=== PATIENT | female | born 1990 | race Caucasian/White ===

== ENCOUNTER → 2022-01-05 | Outpatient (REF) | payer OTHER | LOC: M SFHCADAM 11:45 | PROVIDERS: ATTEND Physician Assistant | DX: Z13.21 Encounter for screening for nutritional disorder (principal) ==

== ENCOUNTER → 2022-01-20 | Outpatient (REF) | payer OTHER ==
[2022-01-20 17:39] LABS: HCG, SERUM QUALITATIVE NEGATIVE (NEGATIVE)
[2022-01-20 17:43] LABS: FREE T4 0.92 NG/DL (0.76-1.46)
== END ==
LOC: M SFHCADAM 14:57
PROVIDERS: ATTEND Physician Assistant
DX: N92.6 Irregular menstruation, unspecified (principal)

== ENCOUNTER → 2022-01-27 | Outpatient (CLI) | payer OTHER | LOC: M RAD 16:13 | PROVIDERS: ATTEND Physician Assistant | DX: N92.6 Irregular menstruation, unspecified (principal) ==

== ENCOUNTER → 2022-01-28 | Outpatient (REF) | payer OTHER | LOC: M SFHCDERM 17:38 | PROVIDERS: ATTEND Nurse Practitioner Family | DX: L91.8 Other hypertrophic disorders of the skin (principal) ==

== ENCOUNTER → 2022-11-23 | Outpatient (REF) | payer BC ==
[2022-11-23 15:28] LABS: BASO # 0.1 10^3/uL (0.0-0.2); BASO % 0.8 % (0.0-1.0); EOS # 0.3 10^3/uL (0.0-0.5); EOS % 3.3 % (0.0-3.0); HEMATOCRIT 33.5 % (36.0-47.0); HEMOGLOBIN 9.7 g/dl (12.0-15.5); LYMPH # 1.7 10^3/uL (1.5-5.0); LYMPH % 22.1 % (24.0-44.0); MEAN CORPUSCULAR HEMOGLOBIN 21.9 pg (27.0-33.0); MEAN CORPUSCULAR VOLUME 75.6 fl (80.0-96.0); MONO # 0.6 10^3/uL (0.0-0.8); MONO % 7.7 % (2.0-8.0); NEUTROPHILS # 5.1 10^3/uL (1.5-8.5); NEUTROPHILS % 65.8 % (36.0-66.0); PLATELET COUNT, AUTOMATED 297 10^3/uL (150-450); RED BLOOD COUNT 4.43 10^6/uL (4.00-5.40); WHITE BLOOD COUNT 7.7 10^3/uL (4.0-10.0)
[2022-11-23 15:38] LABS: HEMOGLOBIN A1c 5.4 % (4.0-6.0)
[2022-11-23 15:55] LABS: HCG, SERUM QUANTITATIVE < 2.6 MIU/ML (<4.2)
[2022-11-23 15:59] LABS: IRON (FE) 22 UG/DL (50-170); PERCENT SATURATION 6.5 % (13.2-45.0); TOTAL 25(OH) VITAMIN D 24.9 NG/ML (20.0-100.0); TOTAL IRON BINDING CAPACITY 337 UG/DL (250-425)
[2022-11-23 16:00] LABS: ALBUMIN 3.5 G/DL (3.2-5.2); ALKALINE PHOSPHATASE 73 U/L (46-116); ALT/SGPT 28 U/L (7.0-40); AST/SGOT 19 U/L (<34); BILIRUBIN,TOTAL 0.2 MG/DL (0.3-1.2); BLOOD UREA NITROGEN 12 MG/DL (9-23); CALCIUM LEVEL 8.9 MG/DL (8.5-10.1); CARBON DIOXIDE LEVEL 27 MMOL/L (20-31); CHLORIDE LEVEL 106 MMOL/L (98-107); CHOLESTEROL LEVEL 149 MG/DL (<200); CHOLESTEROL RISK RATIO 3.15 (<5); CREATININE FOR GFR 0.56 MG/DL (0.55-1.30); FERRITIN 3.8 NG/ML (7.3-270.7); GLOMERULAR FILTRATION RATE > 60.0 (>60); GLUCOSE, FASTING 87 MG/DL (60-100); HDL CHOLESTEROL 47.3 MG/DL (>40); LDL CHOLESTEROL 88.3 MG/DL (<100); NON-HDL-C 102 MG/DL; POTASSIUM SERUM 4.4 MMOL/L (3.5-5.1); SODIUM LEVEL 139 MMOL/L (136-145); TOTAL PROTEIN 6.6 G/DL (5.7-8.2); TRIGLYCERIDES LEVEL 67 MG/DL (<150)
[2022-11-23 16:01] LABS: THYROID STIMULATING HORMONE 3.762 uIU/ML (0.55-4.78)
[2022-11-23 16:02] LABS: FREE T4 0.93 NG/DL (0.89-1.76)
== END ==
LOC: M SFHCADAM 08:07
PROVIDERS: ATTEND Physician Assistant
DX: F33.9 Major depressive disorder, recurrent, unspecified (principal); E55.9 Vitamin D deficiency, unspecified; N92.6 Irregular menstruation, unspecified; Z68.44 Body mass index [BMI] 60.0-69.9, adult

== ENCOUNTER → 2022-12-09 | Outpatient (CLI) | payer BC | LOC: M RAD 14:42 | PROVIDERS: ATTEND Physician Assistant | DX: N92.6 Irregular menstruation, unspecified (principal) ==

== ENCOUNTER → 2023-02-01 | Outpatient (REF) | payer BC ==
[2023-02-01 16:38] LABS: BASO # 0.1 10^3/uL (0.0-0.2); BASO % 0.8 % (0.0-1.0); EOS # 0.2 10^3/uL (0.0-0.5); EOS % 2.9 % (0.0-3.0); HEMATOCRIT 38.5 % (36.0-47.0); HEMOGLOBIN 12.1 g/dl (12.0-15.5); LYMPH # 2.3 10^3/uL (1.5-5.0); LYMPH % 30.6 % (24.0-44.0); MEAN CORPUSCULAR HEMOGLOBIN 24.3 pg (27.0-33.0); MEAN CORPUSCULAR HGB CONC 31.4 g/dl (32.0-36.5); MEAN CORPUSCULAR VOLUME 77.5 fl (80.0-96.0); MONO # 0.7 10^3/uL (0.0-0.8); MONO % 8.6 % (2.0-8.0); NEUTROPHILS # 4.3 10^3/uL (1.5-8.5); NEUTROPHILS % 56.7 % (36.0-66.0); PLATELET COUNT, AUTOMATED 343 10^3/uL (150-450); RED BLOOD COUNT 4.97 10^6/uL (4.00-5.40); WHITE BLOOD COUNT 7.6 10^3/uL (4.0-10.0)
[2023-02-01 20:12] LABS: PERCENT SATURATION 16.8 % (13.2-45.0)
[2023-02-01 20:16] LABS: FERRITIN 14.3 NG/ML (7.3-270.7)
== END ==
LOC: M SFHCADAM 14:34
PROVIDERS: ATTEND Physician Assistant
DX: D50.9 Iron deficiency anemia, unspecified (principal)

== ENCOUNTER → 2023-08-16 | Outpatient (REF) | payer BC ==
[2023-08-16 17:58] LABS: BASO # 0.1 10^3/uL (0.0-0.2); BASO % 0.7 % (0.0-1.0); EOS # 0.2 10^3/uL (0.0-0.5); EOS % 2.4 % (0.0-3.0); HEMATOCRIT 41.5 % (36.0-47.0); HEMOGLOBIN 13.6 g/dl (12.0-15.5); LYMPH % 26.1 % (24.0-44.0); MEAN CORPUSCULAR HEMOGLOBIN 28.3 pg (27.0-33.0); MEAN CORPUSCULAR HGB CONC 32.8 g/dl (32.0-36.5); MEAN CORPUSCULAR VOLUME 86.3 fl (80.0-96.0); MONO # 0.7 10^3/uL (0.0-0.8); MONO % 8.8 % (2.0-8.0); NEUTROPHILS # 4.7 10^3/uL (1.5-8.5); NEUTROPHILS % 61.5 % (36.0-66.0); PLATELET COUNT, AUTOMATED 239 10^3/uL (150-450); RED BLOOD COUNT 4.81 10^6/uL (4.00-5.40); WHITE BLOOD COUNT 7.7 10^3/uL (4.0-10.0)
[2023-08-16 18:15] LABS: BLOOD UREA NITROGEN 9 MG/DL (9-23); CALCIUM LEVEL 9.1 MG/DL (8.5-10.1); CARBON DIOXIDE LEVEL 28 MMOL/L (20-31); CHLORIDE LEVEL 105 MMOL/L (98-107); CREATININE FOR GFR 0.56 MG/DL (0.55-1.30); GLOMERULAR FILTRATION RATE > 60.0 (>60); GLUCOSE, FASTING 82 MG/DL (60-100); POTASSIUM SERUM 4.1 MMOL/L (3.5-5.1); SODIUM LEVEL 138 MMOL/L (136-145)
[2023-08-16 18:16] LABS: IRON (FE) 50 UG/DL (50-170); PERCENT SATURATION 16.5 % (13.2-45.0); TOTAL IRON BINDING CAPACITY 303 UG/DL (250-425)
[2023-08-16 18:17] LABS: VITAMIN B12 LEVEL 470 PG/ML (211-911)
== END ==
LOC: M SFHCADAM 15:24
PROVIDERS: ATTEND Physician Assistant
DX: D50.9 Iron deficiency anemia, unspecified (principal); G62.9 Polyneuropathy, unspecified